=== PATIENT | male | born 1970 | race Caucasian/White ===

== ENCOUNTER 2021-04-02 13:28 | Inpatient (IN) | payer MEDICARE, OTHER ==
[~2021-04-02] VITALS: Ht 188 cm; Wt 74.8 kg
[2021-04-02 15:03] LABS: HEMOGLOBIN 13.7 gm/dl (14.0-17.5); RED BLOOD COUNT 4.35 M/UL (4.20-5.50); WHITE BLOOD COUNT 17.7 K/UL (4.5-11.0)
[2021-04-02 15:25] LABS: BUN/CREATININE RATIO 7 (0-10)
[2021-04-02] MEDS ORDERED: GABAPENTIN400 MG PO (17:41)
[2021-04-02] MEDS ORDERED: ATENOLOL25 MG PO (17:41)
[2021-04-02] MEDS ORDERED: GABAPENTIN800 MG PO (17:42)
[2021-04-03 04:34] LABS: HEMOGLOBIN 12.4 gm/dl (14.0-17.5); RED BLOOD COUNT 4.12 M/UL (4.20-5.50)
[2021-04-03 04:36] LABS: WHITE BLOOD COUNT 12.2 K/UL (4.5-11.0)
[2021-04-03 05:03] LABS: BUN/CREATININE RATIO 10 (0-10)
[2021-04-05 02:44] LABS: HEMOGLOBIN 13.2 gm/dl (14.0-17.5); RED BLOOD COUNT 4.33 M/UL (4.20-5.50); WHITE BLOOD COUNT 12.6 K/UL (4.5-11.0)
[2021-04-05 03:12] LABS: BUN/CREATININE RATIO 9 (0-10)
[2021-04-05] MEDS ORDERED: FAMOTIDINE20 MG PO (10:39)
[2021-04-05] MEDS ORDERED: TAB-A-VITE TA400 MC1 PO (10:39)
[2021-04-05] MEDS ORDERED: BACTRIM DS TAB1 EACH PO (10:40)
[2021-04-05 15:11] LABS: ANTI-DSDNA ANTIBODIES <1 IU/mL (0-9)
[2021-04-06 18:11] LABS: CHLAMYDIA TRACHOMATIS, NAA Negative (Negative); NEISSERIA GONORRHOEAE, NAA Negative (Negative)
== END 2021-04-05 18:29 | DRG 603 ==
LOC: ER1 13:28 → M/S 15:50 → CDU 15:50 → M/S 17:15
PROVIDERS: Emergency Medicine; Internal Medicine; Physician Assistant; ADMIT Internal Medicine
PROC: B24BZZ4 Ultrasonography of Heart with Aorta, Transesophageal (ICD-10-PCS; principal; 2021-04-02)
DX: L03.113 Cellulitis of right upper limb (principal); E87.1 Hypo-osmolality and hyponatremia; R65.10 Systemic inflammatory response syndrome (SIRS) of non-infectious origin without acute organ dysfunction; Z20.822 Contact with and (suspected) exposure to COVID-19; E83.42 Hypomagnesemia; M48.00 Spinal stenosis, site unspecified; F10.10 Alcohol abuse, uncomplicated; I10 Essential (primary) hypertension; F17.210 Nicotine dependence, cigarettes, uncomplicated; Z90.5 Acquired absence of kidney; Z99.3 Dependence on wheelchair; Z90.49 Acquired absence of other specified parts of digestive tract; Z82.49 Family history of ischemic heart disease and other diseases of the circulatory system
CPT/HCPCS: ECHO; 36415; 73080; 80048; 80053; 80202; 83605; 83735; 84550; 85025; 85652; 86021; 86140; 86225; 87040; 93306; 99284; J0692; J3370; J3411; J3475; J7030; J7050; J7070; U0002